=== PATIENT | female | born 1965 | race Caucasian/White ===

== ENCOUNTER 2024-04-23 11:52 | Outpatient (CLI) | payer OTHER, BC | END 2024-04-23 11:53 | disposition home or self-care (01) | LOC: RAD 11:52 | PROVIDERS: ATTEND Nurse Practitioner Family | DX: J06.9 Acute upper respiratory infection, unspecified (principal); U07.1 COVID-19; R06.89 Other abnormalities of breathing | CPT/HCPCS: 71046 ==